=== PATIENT | male | born 1960 | race Caucasian/White ===

== ENCOUNTER 2021-02-03 17:16 | Emergency (ER) | payer BC ==
--- NOTE | 2021-02-03 17:42 | EDM.PDOC ---
ED HPI GENERAL MEDICAL PROBLEM - General Chief Complaint: Genitourinary Problem Stated Complaint: bladder fullness Time Seen by Provider: 02/03/21 17:25 Source of Information: Reports: Patient History Limitations: Reports: No Limitations - History of Present Illness INITIAL COMMENTS - FREE TEXT/NARRATIVE: Linden is a 60 year old male who presents to ER with complaints of bladder fullness, catheter not draining. He horton an extensive history. Was diagnosed with prostate cancer in 2018. Had a prostatectomy, radiation and hormone injections. This last September, was having difficulty with urinary retention and passing blood clots. Was found to have a mass in his bladder that they feel was a consequence of radiation. Denies was recurrence of cancer. He underwent a tumor debulking surgery at that. Has had intermittent issues with blood clots since that time so had procedure this am to cauterize and clean out the bladder. A catheter was placed and was draining pink-tinged urine throughout the day. Was found to have a hemoglobin of 6.4 so also received 2 units of blood today. Was given instructions to remove catheter at home this am. Now notes that catheter has not drained since 1529 and is starting to get uncomfortable. No fevers. No nausea/vomiting. Onset: Today Duration: Hour(s): Location: Reports: Abdomen Quality: Reports: Ache Severity: Mild Improves with: Reports: None Associated Symptoms: Reports: No Other Symptoms - Related Data Allergies Allergy/AdvReac Type Severity Reaction Status Date / Time lisinopril Allergy Cannot Verified 02/03/21 17:27 Remember oxycodone Allergy Cannot Verified 02/03/21 17:27 Remember Home Meds: Home Meds Losartan [Cozaar] 50 mg PO DAILY 02/03/21 [History] Rosuvastatin [Crestor] 20 mg PO DAILY 02/03/21 [History] amLODIPine Besylate [Norvasc] 10 mg PO DAILY 02/03/21 [History] traZODone 50 mg PO BEDTIME 02/03/21 [History] Past Medical History Cardiovascular History: Reports: High Cholesterol, Hypertension Oncologic (Cancer) History: Reports: Bladder, Prostate Social & Family History - Tobacco Use Tobacco Use Status *Q: Unknown Ever Used Tobacco ED ROS GENERAL - Review of Systems Review Of Systems: See Below Constitutional: Denies: Fever, Chills, Malaise, Weakness, Fatigue HEENT: Reports: No Symptoms Respiratory: Denies: Shortness of Breath, Cough Cardiovascular: Denies: Chest Pain, Edema, Lightheadedness Endocrine: Reports: No Symptoms GI/Abdominal: Reports: Abdominal Pain. Denies: Nausea, Vomiting : Reports: Urinary Retention Musculoskeletal: Reports: No Symptoms Skin: Reports: No Symptoms Neurological: Reports: No Symptoms ED EXAM, RENAL/ - Physical Exam Exam: See Below Exam Limited By: No Limitations General Appearance: Alert, WD/WN, No Apparent Distress Head: Normocephalic Neck: Normal Inspection, Supple, Non-Tender Respiratory/Chest: No Respiratory Distress, Lungs Clear, Normal Breath Sounds Cardiovascular: Regular Rate, Rhythm GI/Abdominal: Normal Bowel Sounds, Soft, Non-Tender (Male) Exam: Other (catheter intact. Small amount of urine in bag, pink- tinged) Extremities: Normal Inspection, No Pedal Edema Neurological: Alert, Oriented Skin Exam: Warm, Dry Course - Vital Signs Last Recorded V/S: Last Vital Signs Temp 98.0 F 02/03/21 17:18 Pulse 87 02/03/21 17:18 Resp 18 02/03/21 17:18 BP 132/62 02/03/21 17:18 Pulse Ox 97 02/03/21 17:18 - Re-Assessments/Exams Free Text/Narrative Re-Assessment/Exam: 02/03/21 1800- Nurse able to flush catheter with ease. Return drainage is clear, no clots noted. 1815-Catheter is draining small amount of pink-tinged urine. Has no discomfort at this time. Departure - Departure Time of Disposition: 18:13 Disposition: Home, Self-Care 01 Condition: Good Clinical Impression: Retention of urine - Discharge Information *PRESCRIPTION DRUG MONITORING PROGRAM REVIEWED*: No *COPY OF PRESCRIPTION DRUG MONITORING REPORT IN PATIENT TU: No Instructions: Indwelling Urinary Catheter Care, Adult Referrals: Tyler Zheng MD [Primary Care Provider] - Forms: ED Department Discharge Additional Instructions: 1. Push fluids 2. Discontinue catheter in am as advised 3. Call Dr. Osorio or return here if any questions or concerns. Sepsis Event Note (ED) - Evaluation Sepsis Screening Result: No Definite Risk - Focused Exam Vital Signs: Vital Signs Temp Pulse Resp BP Pulse Ox 02/03/21 17:18 98.0 F 87 18 132/62 97
== END 2021-02-03 18:19 | disposition home or self-care (01) ==
LOC: VM.ED 17:16
DX: R33.9 Retention of urine, unspecified (principal); E78.00 Pure hypercholesterolemia, unspecified; I10 Essential (primary) hypertension; Z88.5 Allergy status to narcotic agent; Z88.8 Allergy status to other drugs, medicaments and biological substances; Z79.899 Other long term (current) drug therapy
CPT/HCPCS: 99283; 99284

== ENCOUNTER 2022-01-31 15:58 | Emergency (ER) | payer BC ==
[2022-01-31] MEDS ORDERED: Ketorolac 30 MG/ML SDV IVPUSH ONE (16:25)
[2022-01-31] MEDS ORDERED: Promethazine 6.25 MG in Sodium Chloride 0.9% 100 ML IV ONE (16:26)
[2022-01-31] MEDS ORDERED: Sodium Chloride 0.9% 1,000 ML IV ONE (16:31)
[2022-01-31] MEDS ORDERED: Tamsulosin 0.4 MG Cap.ER PO SCH (16:45)
[2022-01-31] MEDS ORDERED: HYDROmorphone 1 MG/ML Syringe IVPUSH ONE (17:31)
[2022-01-31] MEDS ORDERED: Take Home: Acetaminophen/HYDROcodone 325-5 MG, 5 Tab Pack PO ONE (18:17)
[2022-01-31] MEDS ORDERED: Take Home: Ondansetron 4 MG Tab.DIS, 5 Tab Pack PO ONE (18:17)
== END 2022-01-31 18:40 | disposition home or self-care (01) ==
LOC: VM.ED 15:58
DX: N23 Unspecified renal colic (principal); R31.9 Hematuria, unspecified; E78.00 Pure hypercholesterolemia, unspecified; I10 Essential (primary) hypertension; F17.210 Nicotine dependence, cigarettes, uncomplicated; Z88.5 Allergy status to narcotic agent; Z88.8 Allergy status to other drugs, medicaments and biological substances; Z79.899 Other long term (current) drug therapy
CPT/HCPCS: 81001; 87086; 96361; 96374; 96375; 99284; A9270; J1170; J1885; J2550; J3490; J7030; Q0162

== ENCOUNTER 2024-04-17 17:51 | Emergency (ER) | payer MEDICARE, BC ==
[2024-04-17 18:18] LABS: BASOPHILS ABSOLUTE AUTO 0.1 x10^3/uL (0.0-0.2); BASOPHILS PERCENT AUTO 0.6 % (0.2-1.2); EOSINOPHILS ABSOLUTE AUTO 0.4 x10^3/uL (0.0-0.5); EOSINOPHILS PERCENT AUTO 4.2 % (0.0-4.0); HEMATOCRIT 38.2 % (40.0-52.0); HEMOGLOBIN 13.3 g/dL (14.0-18.0); IMMATURE GRAN ABSOLUTE AUTO 0.02 x10^3/uL (0.00-0.07); LYMPHOCYTES ABSOLUTE AUTO 1.3 x10^3/uL (1.0-4.8); LYMPHOCYTES PERCENT AUTO 14.4 % (25.0-50.0); MEAN CORPUSCULAR HGB CONC 34.8 g/dL (32.0-36.0); MONOCYTES PERCENT AUTO 10.9 % (2.0-11.0); NEUTROPHILS ABSOLUTE AUTO 6.2 x10^3/uL (1.8-7.7); NEUTROPHILS PERCENT AUTO 69.7 % (50.0-80.0); PLATELET COUNT,PLT 229 x10^3/uL (130-400); RED BLOOD CELL COUNT 4.29 x10^6/uL (4.5-6.0); WHITE BLOOD CELL COUNT,WBC 8.8 x10^3/uL (4.0-10.0)
[2024-04-17 18:34] LABS: ANION GAP 11.3 mmol/L (5-15); BLOOD UREA NITROGEN,BUN 23 mg/dL (7-18); CALCIUM 8.6 mg/dL (8.5-10.1); CARBON DIOXIDE,CO2 30 mmol/L (21-32); CHLORIDE,CL 104 mmol/L (98-107); CREATININE 1.2 mg/dL (0.70-1.30); ESTIMATED GFR 67 mL/min (>=60); GLUCOSE RANDOM 108 mg/dL (70-99); POTASSIUM,K 4.3 mmol/L (3.5-5.1); SODIUM,NA 141 mmol/L (136-145)
[2024-04-17 18:42] LABS: BILIRUBIN,URINE NEGATIVE (NEGATIVE); COLOR,URINE YELLOW (YELLOW); GLUCOSE,URINE NEGATIVE (NEGATIVE); KETONES,URINE NEGATIVE (NEGATIVE); LEUKOCYTE ESTERASE,URINE TRACE (NEGATIVE); NITRITE,URINE NEGATIVE (NEGATIVE); OCCULT BLOOD,URINE MODERATE (NEGATIVE); PROTEIN,URINE 30 mg/dL (NEGATIVE); UROBILINOGEN,URINE 0.2 EU/dL (0.2)
[2024-04-17 18:43] LABS: APPEARANCE,URINE SLIGHTLY CLOUDY (CLEAR)
[2024-04-17 18:46] LABS: RBC,URINE 50-75 /HPF (NOT SEEN)
[2024-04-17 18:47] LABS: BACTERIA,URINE OCCASIONAL /HPF (NOT SEEN); MUCUS,URINE OCCASIONAL /LPF (NOT SEEN); SQUAMOUS EPITHELIAL CELLS,UR NOT SEEN /HPF (NOT SEEN)
[2024-04-17] MEDS: Ondansetron 4 MG/2 ML SDV IVPUSH ONE (19:08)
[2024-04-17] MEDS: Morphine 4 MG/ML Syringe IVPUSH ONE (19:08)
[2024-04-17] MEDS: Take Home: Acetaminophen/HYDROcodone 325-5 MG, 5 Tab Pack PO ONE (19:44)
[2024-04-17] MEDS: Tamsulosin 0.4 MG Cap.ER PO ONE (19:44)
[2024-04-17] MEDS: HYDROmorphone 1 MG/ML Syringe IVPUSH ONE (20:08)
== END 2024-04-17 20:05 | disposition home or self-care (01) ==
LOC: VM.ED 17:51
DX: N13.2 Hydronephrosis with renal and ureteral calculous obstruction (principal); I10 Essential (primary) hypertension; E78.00 Pure hypercholesterolemia, unspecified; F17.210 Nicotine dependence, cigarettes, uncomplicated; Z88.8 Allergy status to other drugs, medicaments and biological substances; Z79.899 Other long term (current) drug therapy
CPT/HCPCS: 74176; 80048; 81001; 85025; 87086; 96374; 96375; 99284; 99284-25; A9270-GY; J1170; J2270; J2405